=== PATIENT | female | born 1995 | race Caucasian/White ===

== ENCOUNTER 2023-04-02 15:48 | Outpatient (CLI) | payer BC, SELFPAY ==
--- NOTE | 2023-04-02 16:00 | CRLHL7_ITS ---
For Patients: As a result of the Century Cures Act, medical imaging exams and procedure reports are released immediately into your electronic medical record. You may view this report before your referring provider. If you have questions, please contact your health care provider. OBSTETRICAL ULTRASOUND 04/02/2023 INDICATION: Basic Anatomy Survey. FINDINGS: TABBY by LMP: 08/21/2023. GA: 19 weeks 6 days. Position: Vertex, Longitudinal. Cervix: Visualized TA. Cervical Length: Closed, 3.8 cm. Placenta Position: Anterior TA. Placenta Tip to Internal os: 2.3 cm. Umbilical Cord: Three Vessel Cord. Placental Insertion: Central. Amniotic Fluid: 3.9 cm SDP. Anatomy: Cerebellum: 2 cm, 20 weeks 2 days. Cisterna Magna: 3.5 mm. Nuchal Fold: 3.4 mm. Lateral Ventricle: 5.3 mm. CSP: Observed. Choroid Plexus: Observed. Midline Falx: Observed. Spine: Observed. Stomach: Observed. Abdominal Cord Insertion: Observed. Urinary Bladder: Observed. Kidneys: Observed. Diaphragm: Observed. Nose/Lips: Observed. Orbital View: Observed. Profile: Observed. Extremities: Observed. 4 Chamber Heart: Observed. LVOT/RVOT: Observed. 3VV: Observed. 3VTV: Observed. PROFILE: BPD: 46 cm, 19 weeks 6 days, 51st percentile. HC: 17 cm, 19 weeks 4 days, 32nd percentile. AC: 15.4 cm, 20 weeks 4 days, 68th percentile. FL: 3 cm, 19 weeks 3 days, 27th percentile. FL/AC: 19.82%. HC/AC Ratio: 1.11. Percentile by TABBY: 53%. Heart Rate: 148 bpm. Age by this US: 19 weeks 6 days. TABBY by this US: 08/21/23. COMMENT: Placental cord insertion is suboptimally seen. IMPRESSION: Single live intrauterine gestation. No gross anomalies visualized. Placenta cord insertion suboptimally seen. Rosalba Reynaga M.D. Diagnostic/Breast Radiologist [email or web address] DARLINE/ish / DW/Dictated by: Rosalba Reynaga MD @ 04/04/2023 6:56:00 AM (Electronically Signed)
== END 2023-04-02 15:49 | disposition home or self-care (01) ==
LOC: US 15:49
PROVIDERS: PCP Family Medicine; Visit Provider Advanced Practice Midwife
DX: Z34.92 Encounter for supervision of normal pregnancy, unspecified, second trimester (principal); Z3A.19 19 weeks gestation of pregnancy
CPT/HCPCS: 76805

== ENCOUNTER 2023-04-29 14:48 | Outpatient (CLI) | payer BC, SELFPAY ==
--- NOTE | 2023-04-29 15:00 | CRLHL7_ITS ---
For Patients: As a result of the Century Cures Act, medical imaging exams and procedure reports are released immediately into your electronic medical record. You may view this report before your referring provider. If you have questions, please contact your health care provider. INDICATION: PLACENTAL CORD INSERTION NOT ADEQUATELY SEEN ON SURVEY COMPARISON: 04/02/2023 TECHNIQUE: Real-time camp-scale imaging of the pelvis was performed. FINDINGS: heart rate 138 beats per minute. Normal amniotic fluid with single deepest pocket 5.7 cm. Normal profile. Cervix is closed and measures 3.4 cm. Placenta is anterior. Normal placental cord insertion. IMPRESSION: Normal placental cord insertion. Dictated by Juan Pablo Alcala MD @ 04/29/2023 3:52:32 PM (Electronically Signed)
== END 2023-04-29 14:49 | disposition home or self-care (01) ==
LOC: US 14:48
PROVIDERS: PCP Family Medicine; Visit Provider Advanced Practice Midwife
DX: O43.199 Other malformation of placenta, unspecified trimester (principal)
CPT/HCPCS: 76816

== ENCOUNTER 2023-05-28 13:59 | Outpatient (CLI) | payer BC, SELFPAY | END 2023-05-28 14:00 | disposition home or self-care (01) | LOC: NFLDREF 05-31 09:33 | PROVIDERS: PCP Family Medicine; Referring Provider Family Medicine; Visit Provider Advanced Practice Midwife | DX: Z34.90 Encounter for supervision of normal pregnancy, unspecified, unspecified trimester (principal) | CPT/HCPCS: 86592 ==

== ENCOUNTER 2023-06-01 08:03 | Outpatient (CLI) | payer BC, SELFPAY | END 2023-06-01 08:04 | disposition home or self-care (01) | LOC: NFLDREF 06-02 11:36 | PROVIDERS: PCP Family Medicine; Referring Provider Family Medicine; Visit Provider Advanced Practice Midwife | DX: R73.09 Other abnormal glucose (principal) | CPT/HCPCS: 82951; 82952 ==

== ENCOUNTER 2023-07-29 18:25 | Inpatient (IN) | payer BC, SELFPAY ==
[2023-07-29 18:12] VITALS: PULSE 82; O2SAT 98
[2023-07-29 18:36] VITALS: BP 136/81; PULSE 80
[2023-07-29 19:00] LABS: Amnisure Rom* POSITIVE
[2023-07-29] MEDS: AMPICILLIN 2 GM in 0.9 % SODIUM CHLORIDE Mini-bag 100 ML IVPB (19:06)
[2023-07-29 19:29] VITALS: BMI 27.0
[2023-07-29 20:20] VITALS: BP 132/63; PULSE 82; TEMP 36.8
--- NOTE | 2023-07-29 20:31 | P.OBHP_ITS ---
OB - H&P: HPI Labor/Induction History of Present Illness Date Seen: 07/29/23 Chief Complaint: Sona is a 28 year old 1 para 0 at 36.5 weeks gestation by LMP who presents with SROM of clear fluid at 1640 today. Chief complaint: ob out : 1 Para: 0 Date of last menstrual period: 11/14/22 Estimated date of delivery: 08/21/23 Gestational age based on last menstrual period: 36 Narrative: Sona Hill is a 28 year old female at 36.5 weeks here with SROM today at 1640 for clear fluid. She has continued to leak fluid since and an AmniSure was sent which is positive for rupture of membranes. She is feeling occasional cramping her Wilfredo is with her for support. OB H&P Gestational age: 36 weeks 5/7 days Patient's care began at 11 and 5/7 weeks gestation. She is dated by first trimester US consistent with LMP. EDC is 08/21/2023. She has had routine visits since that time. OB Labs: ?Blood type: O+, antibody screen [negative].?Hgb: 13.6?? ?Platelets : 241?? ?Rubella: Immune?RPR: non-reactive?HBsAg: negative??? Hep: C negative ?HIV: negative?GC/Chlamydia: negative/negative???(02/04/23) ?Pap (08/27/2020): [negative]?? IMAGINst trimester: 12/29/22 viability u/s for spotting. 6.0 weeks. TABBY 08/24/23 by this u/s, consistent with LMP viability u/s 9.6 weeks and TABBY 08/21/23, consistent with LMP Anatomy scan: Single live intrauterine gestation. No gross anomalies visualized. Placenta cord insertion suboptimally seen. Others: heart rate 138 beats per minute. Normal amniotic fluid with single deepest pocket 5.7 cm. Normal profile. Cervix is closed and measures 3.4 cm. Placenta is anterior. Normal placental cord insertion. IMPRESSION: Normal placental cord insertion ALLERGIES: NKDA MEDICATIONS: vitamins OBSTETRIC HISTORY: G 1 P 0 Vaginal deliveries, [0] C-sections, [0] miscarriages, and [0] abortions. [0] living children. GYNECOLOGIC HISTORY: LMP 11/14/22. She has no history of sexually transmitted diseases. Last pap smear 08/27/2020. This was normal. PAST MEDICAL HISTORY: Heart murmur as child, resolved on its own, multiple echos which were normal. Near syncope, >20 episodes. Normal Echo 01/03/21 done @ [facility]. 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 PAST SURGICAL HISTORY: wisdom teeth removal SOCIAL HISTORY: Patient is . She has no denominational or cultural needs. Blood transfusion is acceptable if needed. She is a nonsmoker, drinks no alcoholic beverages, and has no illicit drug use. She has no dietary restrictions. She feels safe at home. She denies abuse. FAMILY HISTORY: Patient denies history of any defects, multiple losses, or mental retardation. COMPREHENSIVE REVIEW OF SYSTEMS: negative other than as dictated above. Specific Issues/Plans : Wilfredo 1. Hx of a heart murmur as child. Resolved, multiple WNL echos. 2. Failed 1hr GTT. 3 hr WNL. 3. GBS + Recommend antibiotics in labor Needs PP pap [facility] transfer records: 02/04/23: New OB visit at 11.5 weeks TABBY 08/21/23 by LMP c/w 6 wk u/s 12/29/22 viability u/s for spotting. 6.0 weeks. TABBY 08/24/23 by this u/s, consistent with LMP viability u/s 9.6 weeks and TABBY 08/21/23, consistent with LMP OB Labs:???12/29/22 ?Blood type: O+, antibody screen negative.?Hgb: 13.6?? ?Platelets : 241?? ?Rubella: Immune?RPR: non-reactive?HBsAg: negative??? Hep: C negative ?HIV: negative?GC/Chlamydia: negative/negative???(02/04/23) ?Pap (08/27/2020): [negative]??? 02/04/23 cell free DNA testing: low risk. Male Covid: Flu: declined RSV: declined Tdap: declined 32 wk PHQ/MURTAZA: 34 wk Hgb: GBS: H&P: History of Present Dating criteria: based on LMP care: good care Ultrasounds: normal 1st trimester US complications comment: PPROM Medical complications: none Review of Systems Status of ROS: Reports: 10 or more systems reviewed and unremarkable except as noted in History and below Meds Home Medications and Allergies Home Medications Medication Instructions Recorded Confirmed Type docosahexaenoic acid 200 mg 200 mg PO DAILY 03/26/23 07/29/23 History capsule ( DHA) vits no.126-ferrous fum 1 tab PO DAILY 07/13/23 07/29/23 History 28 mg iron-folic acid 800 mcg tablet (Classic ) Allergies Allergy/AdvReac Type Severity Reaction Status Date / Time No Known Drug Allergies Allergy Verified 07/27/23 15:55 OB - H&P: Exam Physical Exam: Vital signs: Temp Pulse BP Pulse Ox 98.3 F 82 132/63 98 07/29/23 20:20 07/29/23 20:20 07/29/23 20:20 07/29/23 18:12 Narrative: Objective: Vital signs: as noted above, WNL Total weight gain: see flowsheet General: alert, oriented x3, no acute distress Mood: appropriate Lungs: CTA. Respirations - breathing unlabored Heart: Regular rate and rhythm Abdomen: soft, nontender, gravid uterus Heart Tones: 145 bpm, + accelerations, - decelerations Cervix: Deferred at this time presentation: vertex by Alcon's Legs: nontender, edema none Skin: warm, dry, no rashes Neurologic: Intact. Detailed Labor and Delivery Exam: Patient Gravid: Yes Fetus (Single): Amniotic Membrane Status: SROM Amniotic Membrane Fluid Description: Clear Heart Rate Baseline: 145 Monitor Accelerations: Present Monitor Decelerations: None Hims Coder Variability: Moderate (6-25) OB - Problem Based A/P Additional Plan (1) premature rupture of membranes (PPROM) with unknown onset of labor: Status: Acute (2) 36 weeks gestation of : Status: Acute Plan at 36.5 weeks gestation? GBS positive? Uncomplicated ? PPROM clear fluid Category 1 FHR ?? PLAN:? 1. Antibiotic prophylaxis treatment per protocol, first dose when labor or augmentation started 2. Limit vaginal exams 2. Reviewed the risks and benefits of expectant management vs augmentation of labor at this time. Patient prefers expectant management. Will consider augmentation at 12 hours from ROM. 3. Candidate for analgesia of choice. Planning unmedicated .?? 4. Anticipate ? 5. SL per protocol for antibiotics 6. Continuous monitoring for gestation? ? Delivery/Labor/Induction Plan Plan: expectant management
[2023-07-29 21:30] VITALS: BP 128/71; PULSE 69; TEMP 36.8
[2023-07-29] MEDS: AMPICILLIN 1 GM in 0.9 % SODIUM CHLORIDE Mini-bag 100 ML IVPB (22:44)
[2023-07-29 22:47] VITALS: BP 107/55; PULSE 69; TEMP 36.9
[2023-07-30] VITALS (15 sets, daily range): BP systolic 120–132; BP diastolic 66–75; PULSE 74–103; RESP 16–18; TEMP 36.6–37
[2023-07-30] MEDS: AMPICILLIN 1 GM in 0.9 % SODIUM CHLORIDE Mini-bag 100 ML IVPB ×6 (02:40→23:10)
--- NOTE | 2023-07-30 05:05 | P.OBPN_ITS ---
Subjective Date Seen: 07/30/23 Narrative: ?Sona is coping well with labor pain/contractions. Per RN report she started breathing through contractions around 0100, has been painful with contractions since that time. She is currently in the tub for pain relief and relaxation. ?Wilfredo is with her for support. ?She would like to continue with water immersion for comfort and pain management.?She is declining a VE at this time. Objective Exam: General Appearance:? Calm, cooperative. ?No acute distress. ? Psychiatric Exam: Alert and oriented, appropriate affect Abdomen: Gravid Ctx: ?Q 3-5 min apart. Moderate FHTs: ?Baseline: 135. ? ? Variability: moderate. ?Accels: +. ? ?Decels: ?-. SVE: 2cm 60% -3 per RN Membranes: ?SROM ? X 12 hours Vital Signs: Last Vital Signs Temp 98.4 F 07/30/23 03:36 Pulse 74 07/30/23 03:36 BP 129/74 07/30/23 03:36 Pulse Ox 98 07/29/23 18:12 Contractions Monitor mode: External Contraction Frequency: 3-5 Contraction pattern: Regular Contraction intensity: Moderate Assessment Assessment: early labor Amniotic Membrane Status: SROM Status: Category l Heart Rate Baseline: 145 Half-[address] Variability: Moderate (6-25) Monitor Accelerations: Present Monitor Decelerations: None Plan Plan: Assessment:?? at 36.6wks gestation?? GBS Positive Patient is coping well with challenges of labor.?? Labor type: Spontaneous, Early labor? Category 1 FHR pattern.? complicated by: Hx heart murmur as child, Near syncope episodes Labor complicated by: PPROM? Plan:?? Continue expectant management, consider VE to assess progression when patient is ready or labor slows Antibiotic prophylaxis treatment per protocol continues, has had adequate treatment at this time Continue with routine intrapartum cares as ordered.?? Patient encouraged to move and change positions to promote physiologic labor and .?? Nonpharmacologic comfort measures per patient preference. Candidate for analgesia of choice if desired. Anticipate progress to NVD. ?
--- NOTE | 2023-07-30 08:14 | PM.OBPNL ---
Subjective Date Seen: 07/30/23 Narrative: Sona continues to contract. She states that contractions increased around 0100 and have increased in intensity and frequency. This morning they did decrease in frequency to about every 5-7 minutes. At that time we did discuss a plan for proceeding and discussed Cytotec and Pitocin augmentation. She desired expectant management at that time. We planned to reevaluate the need for augmentation around [id number]. However, since around 0730 they again increased to every 3-4 minutes. She is feeling a lot of back and pelvic pain with contractions. Around 0800 she began to feel a little bit of pressure with contractions and requested a SVE. She was found to be 3/100%/-1. She is continuing to try to rest between contractions. We talked about position changes and she is going to try the Hue circuit with the RN. She is feeling a little discouraged but wants to continue with expectant management and is thankful that she doesn't need Pitocin at this time. Objective Vital Signs: Last Vital Signs Temp 97.9 F 07/30/23 07:31 Pulse 75 07/30/23 06:44 BP 128/69 07/30/23 06:44 Pulse Ox 98 07/29/23 18:12 Contractions Monitor mode: External Contraction pattern: Regular Contraction intensity: Moderate Assessment Assessment: early labor Station: -1 Amniotic Membrane Status: SROM Status: Category l Heart Rate Baseline: 145 Chemist Inorganic Variability: Moderate (6-25) Monitor Accelerations: Present Monitor Decelerations: None Plan Plan: Expectant management. Consider augmentation if changes. GBS positive. Continue with antibiotic prophylaxis. Candidate for analgesia of choice. Desires unmedicated. Anticipate .
--- NOTE | 2023-07-30 17:58 | P.OBPN_ITS ---
Subjective Date Seen: 07/30/23 Narrative: Sona has continued to labor throughout the day. She has mostly contracted every 3-4 minutes but occasionally the contractions have decreased to every 6-10. She is feeling pressure intermittently. We discussed Pitocin augmentation around 1400 when her contractions spaced out initially but she declined and wanted to try pumping. She was found to be 5-6cm at this time. This did increase the frequency. Her contractions did once again decreased in frequency around 1600 an d pumping again increase the frequency. She requested a SVE around 1800 and was found to be unchanged from her previous exam. At this time we discussed options for proceeding including Pitocin augmentation, epidural, IV pain medications to allow her to relax and rest, or hydrotherapy. She definitively declined an epidural and did not want to consider Pitocin at this time. She would like to try hydrotherapy. She was encouraged to consider IV medications if that did not allow her to relax. We discussed that this could decrease the frequency of contractions. Sona continues to leak clear amniotic fluid and denies blood show. I am unable to determine position due to her tolerance of SVE but I suspect that baby is asynclitic. Will closely monitor and continue to encourage ways for her to rest, relax and progress her labor. Objective Vital Signs: Last Vital Signs Temp 97.8 F 07/30/23 16:41 Pulse 103 H 07/30/23 16:41 Resp 18 07/30/23 16:41 BP 132/66 07/30/23 16:41 Pulse Ox 98 07/29/23 18:12 Pelvic Exam Dilation (cm): 6 Effacement (%): 100 Contractions Monitor mode: External Contraction Frequency: 2-6 Contraction pattern: Regular Contraction intensity: Moderate Assessment Station: -1 Amniotic Membrane Status: SROM Status: Category l Heart Rate Baseline: 135 Monitor Accelerations: Present Monitor Decelerations: None
[2023-07-30] MEDS: OXYTOCIN 30 unit/500 ML in NS 30 UNIT/500 ML BAG IVPB (19:10)
--- NOTE | 2023-07-30 22:36 | PM.OBPNL ---
Subjective Date Seen: 07/30/23 Narrative: Sona did decided on hydrotherapy after or last discussion. It was helpful in allowing her to relax and cope better with contractions. She was agreeable to Pitocin augmentation at 1900 after her contractions once again spaced out. She did start to feel more pressure with contractions around 2100. She requested a SVE and was found to be 8cm. She is continuing to labor in the tub. We did have a discussion about not delivering in the tub and she is agreeable to getting out when pushing or close to delivery. All questions answered. She is coping fair with contractions and lots of support is provided by her partner and the RN. Objective Vital Signs: Last Vital Signs Temp 98.6 F 07/30/23 19:31 Pulse 98 07/30/23 19:31 Resp 16 07/30/23 19:31 BP 120/67 07/30/23 19:31 Pulse Ox 98 07/29/23 18:12 Pelvic Exam Dilation (cm): 8 Effacement (%): 100 Station: 0 Contractions Monitor mode: External Contraction pattern: Regular Contraction intensity: Moderate Pitocin Rate (mU/min): 3 Assessment Station: -1 Amniotic Membrane Status: SROM Status: Category l Heart Rate Baseline: 140 Senior Care Variability: Moderate (6-25) Monitor Accelerations: Present Monitor Decelerations: None Plan Plan: Continue with Pitocin titration as needed. Continuous monitoring. GBS +. Continue antibiotic infusion as ordered. Anticipate . Candidate for analgesia of choice. Desires unmedicated. Coping fair at this time with support.
[2023-07-31] VITALS (29 sets, daily range): BP systolic 92–135; BP diastolic 61–79; PULSE 79–91; RESP 16–18; TEMP 36.3–36.7; O2SAT 95–100
--- NOTE | 2023-07-31 03:01 | P.OBPN_ITS ---
Subjective Date Seen: 07/31/23 Narrative: Sona progressed to complete and started pushing around 0000. At that time she was 37.0 weeks and desired to try for a water so she was moved to room 200 and into the tub. She has been pushing in many different positions in the tub and did get out of the tub to urinate and did labor and push for a short while out of the tub as well standing, squatting and on the toilet. She has now been pushing almost 3 hours and has had very minimal sleep. She initially was making good progress but less progress has been made in the last hour and it feels that caput is increasing. I suspect that baby could be asynclitic causing pushing to be more difficult. We discussed options for proceeding and my concern for her continued strength for pushing. We have been increasing the Pitocin but very slowly per her request and only with her consent. We discussed increasing the Pi tocin more frequently to increase the strength of the contractions. She is hesitant but agreeable to this with continued discussion with her before titration changes. We also discussed an epidural for pain which she is very resistant to. We also discussed consulting Dr. Ervin to evaluate for interventions that she can do including but not limited to rotation, vacuum assisted and delivery. She initially desired longer to push but did consent to this after a few more pushes. Dr. Ervin was notified and will come and evaluate Sona. She will continue to push until that time with support and encouragement. Objective Vital Signs: Last Vital Signs Temp 98.6 F 07/30/23 19:31 Pulse 85 07/31/23 00:04 Resp 16 07/30/23 19:31 BP 135/66 07/31/23 00:04 Pulse Ox 98 07/29/23 18:12 Pelvic Exam Dilation (cm): 10 Effacement (%): 100 Contractions Monitor mode: External Contraction Frequency: 2-5 Contraction pattern: Regular Contraction intensity: Moderate Pitocin Rate (mU/min): 6 Assessment Assessment: other (2nd stage) Station: -1 Amniotic Membrane Status: SROM Status: Category l Heart Rate Baseline: 140 Residential Variability: Moderate (6-25) Monitor Accelerations: Present Monitor Decelerations: None Plan Plan: OB consultation. Continue pushing. Continue Pitocin titration. Anticipate NVD.
[2023-07-31] MEDS: AMPICILLIN 1 GM in 0.9 % SODIUM CHLORIDE Mini-bag 100 ML IVPB (03:04)
[2023-07-31] MEDS: LACTATED RINGERS 1000 ML 1,000 ML 125 ML IV (04:59)
--- NOTE | 2023-07-31 05:51 | P.OBPN_ITS ---
Subjective Date Seen: 07/31/23 Narrative: Dr Ervin arrived at 0345. She continued to push in multiple positions in the tub until that time. She the OB arrived she got up and went to the bed to be evaluated. See Dr. Ervin notes for details but it was determined that there was likely enough room for delivery and a decision was made to continue pushing for an additional 30 minutes. Around 5 she was again evaluated and continue to push with guidance. Around 514 a discussion was had with dr. Ervin and Sona about options to proceed. She was given the options of continuing but educated on the risks involved related to her exhaustion and the length of pushing, attempting a vacuum assisted delivery and risks and benefits were discussed, or a delivery. I was there to help answer questions and provide support. She decided to attempt a vacuum assisted delivery. See dr. Ervin note for details and more information. Objective Vital Signs: Last Vital Signs Temp 98.6 F 07/30/23 19:31 Pulse 85 07/31/23 05:23 Resp 16 07/30/23 19:31 BP 132/64 07/31/23 05:23 Pulse Ox 98 07/29/23 18:12 Pelvic Exam Dilation (cm): 10 Effacement (%): 100 Station: 0 Contractions Monitor mode: External Contraction Frequency: 2-4 Contraction pattern: Regular Contraction intensity: Moderate Pitocin Rate (mU/min): 6 Assessment Station: -1 Amniotic Membrane Status: SROM Status: Category l Heart Rate Baseline: 130 [place] Hydraulic Press Operator Variability: Moderate (6-25) Monitor Accelerations: Present Monitor Decelerations: Variable Plan Plan: Care assumed by Dr. Ervin for attempted vacuum assisted with possibility of delivery.
[2023-07-31] MEDS: AZITHROMYCIN 500 MG in 0.9 % SODIUM CHLORIDE 250 ml 250 ML 255 MG IVPB (06:20)
[2023-07-31 06:57] LABS: Hematocrit 32.9 % (33.0-51.0); Immature Granulocytes Pct Auto 0.5 %; Lymphocytes Percent Auto 4.9 % (20-44); Mean Corpuscular HGB Conc 33 gm/dL (32-36); Mean Corpuscular Hemoglobin 30 pg (26-34); Mean Corpuscular Volume 89 fL (80-100); Monocytes Percent Auto 5.2 % (0.0-11.0); Neutrophils Percent Auto 89.4 % (42.0-72.0); Platelet Count* 242 K/uL (140-440); RDW Coefficient of Variation % 13.1 % (11.5-15.5); Red Blood Count 3.68 m/uL (4.00-5.20)
[2023-07-31 07:08] LABS: Slide Review Reflex No
--- NOTE | 2023-07-31 07:31 | PM.OBPRCCS ---
Procedure Date of procedure: 07/31/23 Pre-op diagnosis: 37 weeks, PPROM, prolonged ROM, secondary arrest of descent, failed vacuum, OT asynclitic presentation Post-op diagnosis: same Procedure Done: Global Will [facility] bill your pro fee for this procedure?: Yes Blood Loss Measurement Type: QBL (369 mL) Bakri Used: No Surgeon: Destinee Ervin MD Recreation Therapist: Minoo Gonzalez MD Anesthesia Type: Spinal Findings: Live-born male, cephalic presentation, occiput transverse position, weight 5 lb 8 oz, Apgars pending at the time of this dictation. Normal-appearing uterus, tubes, and ovaries bilaterally. Procedure Name: Primary low transverse section. Procedure Description: After obtaining informed consent, the patient was taken to the operating room where spinal anesthesia was obtained and found to be adequate. She was prepared and draped in the normal sterile fashion in the dorsal supine position with a leftward tilt. A Pfannenstiel skin incision was made with a scalpel. This incision was carried down to the underlying layer of fascia with the Bovie. The fascia was incised in the midline and the incision extended laterally. The superior and inferior aspects of the fascial incision were grasped with Amador clamps, elevated and the underlying rectus muscles dissected off sharply and with electrocautery. The rectus muscles were then in the midline. The Pedro O retractor was then placed into the incision. The vesico uterine peritoneum was identified, grasped with pickups, and entered sharply with Metzenbaum scissors. This incision was extended laterally and a bladder flap was created digitally. The lower uterine segment was then incised in a transverse fashion with the scalpel. Upon entry into the uterus, clear amniotic fluid was noted. The uterine incision was extended laterally with blunt finger fractionation. Cephalad pressure was applied to the head by an RN. I was then able to cup my fingers around the vertex and the 's head was delivered atraumatically, followed by the remainder of the infant's body. The nose and mouth were suctioned with the bulb suction. The cord was doubly clamped and cut after 30 second delay, and the was handed off the field for pediatric evaluation. The placenta was delivered spontaneously with umbilical cord traction and fundal massage. There was some brief uterine atony. Pitocin was administered intravenously with the IV fluids, tranexamic acid 1000 mg was administered intravenously, and Methergine 0.2 mg was administered intramuscularly. The uterus was cleared of all clots and debris. The uterine incision was reapproximated in a running locking fashion with a 0 chromic suture. A 2nd layer of the same suture was used to imbricate in horizontal fashion. The gutters were irrigated and suctioned. All instruments and retractors were removed. The anterior peritoneum was reapproximated in a running fashion with a 3-0 Vicryl suture. The subfascial tissues were carefully inspected and hemostasis assured. The fascia was reapproximated in a running fashion with a looped 0 Maxon suture. The subcutaneous tissues were copiously irrigated. Hemostasis was assured. The skin was closed in a subcuticular fashion with 4-0 Monocryl. Surgical glue and dressing were applied. The patient tolerated the procedure well. Sponge, lap, needle, and instrument counts were reported as correct x2. The patient was taken to the recovery room, awake, and in stable condition. She did receive two grams of IV Ancef and 500 mg IV azithromycin preoperatively. Complications: None. Pathology: specimen obtained, sent to pathology (Placenta) Condition: stable Disposition: floor
--- NOTE | 2023-07-31 07:38 | P.OBCN_ITS ---
OB - CN: HPI Date of Consult Time Seen by Provider: 03:40 Date Seen: 07/31/23 Patient: [facility] Patient Consult date: 07/31/23 Requesting Physician: Bev Wynne CNM Primary Care Provider: Lizbeth Gonzalez DO Consult Narrative Reason for consult: arrest of labor Narrative: The patient is a 28 year old G 1 P 0 at 37 weeks gestation that was admitted to the [facility] on 07/29/23 for premature rupture of membrane. Labor was augmented with IV Pitocin. She reached complete cervical dilatation at midnight and started pushing just after midnight on 07/31/2023. I was called at 3:00 a.m. by the collaborating supervising physician and asked to come in to evaluate the patient. I evaluated the patient at about 0340, found her cervix to be completely dilated, fetus was vertex, and in an occiput transverse position, slightly asynclitic. The pelvis appeared to be adequate. I assessed the patient's pushing efforts, and found that she did much better pushing with the closed glottis then an open glottis, as she had been doing. History of Present Dating criteria: based on LMP care: good care Ultrasounds: normal 1st trimester US and normal mid trimester US complications comment: PPROM Medical Complications: None. History History 1 Elective abortions 0 Para 0 Spontaneous abortions 0 Hx # Term Pregnancies 0 Ectopic pregnancies Hx # Pregnancies 0 Multiple births Number of Living Children 0 Labs Blood type: O (+) positive Rubella: immune RPR/VDLR: nonreactive GBS status: positive HBsAG: negative OB Labs: Lab Assessment Start: 07/29/23 18:32 Freq: ONCE Status: Complete Protocol: PC.OBGBS Activity Type Activity Date Activity User E-sign Co-sign Detail Recorded Client Recorded Date Recorded By Document 07/29/23 18:32 [facility] [id number] 07/29/23 18:40 [facility] 07/29/23 18:32 Lab Assessment GBS Status positive Is Patient Allergic to Penicillin? No Treatment Required OK Are Labs Available Yes Maternal Blood Type O Maternal RH Factor Positive Evaluate Maternal Rubella Immune Status Immune Hepatitis B Surface Antigen Negative Maternal HIV Status Negative Maternal Syphillis (RPR) Status Negative Review of Systems Status of ROS: Reports: 6 or more systems reviewed and unremarkable except as noted in History and below PFSH PFSH Medical History Heart murmur ?R01.1 - Cardiac murmur, unspecified (ICD-10) Near syncope ?R55 - Syncope and collapse (ICD-10) Surgical History [place] teeth extracted ?K08.409 - Partial loss of teeth, unspecified cause, unspecified class (ICD- 10) Family History Paternal Grandfather Colon cancer Glaucoma Myocardial infarction Stroke Liver disease Lung cancer Lymph node cancer Paternal Grandmother Brain cancer Stroke Father High cholesterol Social History Narrative: SOCIAL? ? Education: 2 associates degrees? Work: for an [employer] company? ? Partner: Wilfredo, , parking meter mechanic? ? Lives with: Wilfredo? ? Pets: dog? ? Abuse: Denies past Unable to assess current, partner present? ? Special Diet: Denies? ? Ok with a blood transfusion: yes? ? Culture or episcopal beliefs: denies? RISK FACTORS? ? Exercise Times/wk: walking daily, yoga.? ? Depression/Anxiety: denies? ? Previous Treatments NA Therapy NA MURTAZA: 0 PHQ 9: 0? ? Seat Belt Use: Routinely ? Smoking: Denies past/present? ? Alcohol/day: Denies while ? ? Caffeine: rare? ? Drug Use: Denies past/present? ? What is your current living situation?: I presently have a place to live Problems where you live: no known problems In the past 12 months, utilities in danger of being shut off: no In past 12 months, lack of transportation kept you from medical appts, meetings, work, or getting things needed for daily living: no In the past 12 mos, have been you worried that your food would run out before you had money to buy more?: never true In the past 12 mos, the food you bought just didn't last and you didn't have money to buy more?: never true Smoking Status: Never smoker How often does anyone, including family, friends and others, physically hurt you : never How often does anyone, including family, friends and others, insult or talk down to you: never How often does anyone, including family, friends and others, threaten you with harm: never How often does anyone, including family, friends and others, scream or curse at you: never Little interest or pleasure in doing things: not at all Feeling down, depressed, or hopeless: not at all Meds Home Medications and Allergies Home Medications Medication Instructions Recorded Confirmed Type docosahexaenoic acid 200 mg 200 mg PO DAILY 03/26/23 07/29/23 History capsule ( DHA) vits no.126-ferrous fum 1 tab PO DAILY 07/13/23 07/29/23 History 28 mg iron-folic acid 800 mcg tablet (Classic ) Allergies Allergy/AdvReac Type Severity Reaction Status Date / Time No Known Drug Allergies Allergy Verified 07/27/23 15:55 OB - H&P: Exam Physical Exam: Vital signs: Temp Pulse Resp BP Pulse Ox 98.6 F 85 16 132/64 98 07/30/23 19:31 07/31/23 05:23 07/30/23 19:31 07/31/23 05:23 07/29/23 18:12 Constitutional: Constitutional: moderate distress (With contractions) Routine HEENT Exam: Head: Present atraumatic Routine Neck Exam: Neck: Present full ROM Routine Respiratory Exam: Respiratory: Present CTA bilaterally Routine Cardiovascular Exam: Cardiovascular: RRR Detailed Labor and Delivery Exam: Patient Gravid: Yes Dilation (cm): 10 Effacement (%): 100 Fetus (Single): Station: +2 Position: Left Occiput Transverse (asynclitic) Amniotic Membrane Status: SROM Amniotic Membrane Fluid Description: Clear Heart Rate Baseline: 130 Monitor Accelerations: Present Monitor Decelerations: Variable Video Operator Variability: Moderate (6-25) OB - Results Labs Labs: Short CBC 07/31/23 Range/Units 06:20 WBC 24.20 H (4.50-11.00) K/uL Hgb 11.0 L (12.0-16.0) gm/dL Hct 32.9 L (33.0-51.0) % Plt Count 242 (140-440) K/uL OB - CN: A/P Assessment and Plan (1) premature rupture of membranes (PPROM) with unknown onset of labor: Status: Acute (2) 36 weeks gestation of : Status: Acute (3) Arrested labor: Status: Acute Plan At the time that I initially evaluated the patient, she was very resistant to the idea of a delivery. We discussed management options, including continued pushing with closed glottis rather than open glottis with maternal repositioning as needed to encourage rotation, vacuum-assisted vaginal delivery, or section. The relative risks and benefits of vacuum- assisted vaginal delivery were discussed, risks including injury to the scalp or bleeding in the brain, the possibility of sudden distress necessitating urgent section, with the possibility that it might not be effective and section would still be recommended. The patient initially elected to keep pushing. She pushed with the collaborating supervising physician from [phone], at which time I re-evaluated her. I suggested other position changes, and she pushed flatter on her back in the lithotomy position as well as in hands knees. At 5:59 a.m., the patient consented verbally for vacuum-assisted vaginal delivery. The OR staffs, anesthesia, and Peds were notified of the impending vacuum attempt. The vacuum was carefully applied to the vertex after first assessing head position, three pulls were done with one contraction with maternal pushing effort, and no descent of the vertex was noted. At this time, which by then was 0600, I recommended proceeding with delivery. Informed consent was obtained for primary low transverse section under spinal anesthesia. Risks discussed included, but were not limited to, bleeding, blood transfusion, infection, injury to other organs or infant, anesthesia reactions. The patient declined TAP block.
--- NOTE | 2023-07-31 08:07 | W.ANESCHARGE ---
Anesthesia Charges Start Date/Time Anesthesia Start Date: 07/31/23 Anesthesia Start Time: 06:24 Stop Date/Time Anesthesia Stop Date: 07/31/23 Anesthesia Stop Time: 08:00 Summary Emergency: CONCIERGE RECEPTIONIST
[2023-07-31] MEDS: KETOROLAC 30 MG/ML inj IVP ×2 (13:51→19:40)
[2023-08-01] VITALS (9 sets, daily range): BP systolic 103–123; BP diastolic 66–83; PULSE 72–83; RESP 16; TEMP 36.3–36.6; O2SAT 97–99
[2023-08-01] MEDS: KETOROLAC 30 MG/ML inj IVP ×3 (01:22→13:54)
[2023-08-01 04:37] LABS: Hemoglobin* 9.3 gm/dL (12.0-16.0)
--- NOTE | 2023-08-01 07:43 | P.OBPN_ITS ---
OB - PN:Subj Subjective Date Seen: 08/01/23 Narrative: Sona is a 28 y.o. G 1 P 1 who was admitted to [facility] for PPROM. ?She had a section that was complicated by failed vacuum. The patient feels well. ?The pain is well controlled with current medications. ?She has no new complain ts. Baby is curretly not due to sugar and temperature instability and on an IV. She has hand expressed one time in the last 24 hours, but desires not to give baby milk that has any anesthesia in it. the patient has done well.? Vitals have been stable.? She has remained afebrile.? Has a good appetite, is tolerating a general diet. ?She is voiding without difficulty.? She is passing gas and has not had a bowel movement.? She is ambulating and denies any dizziness.? Has small amount of rubra lochia. Problems: Anemia plan: Discharge home with baby. Follow up in 2 weeks and 6 weeks. , may see if needed Hgb 9.3. Iron supplement ordered orally every other day OB - PN: Obj Exam Physical Exam: Vital signs: Temp Pulse Resp BP Pulse Ox O2 Del Method 97.5 F L 83 16 103/66 97 Room Air 08/01/23 03:17 08/01/23 03:17 08/01/23 06:00 08/01/23 03:17 08/01/23 03:17 08/01/23 03:17 Narrative: GENERAL APPEARANCE:? normal affect, alert, no distress MOOD:? appropriate CHEST:? clear to auscultation HEART:? regular rate and rhythm ABDOMEN:? soft, non-tender the uterine fundus is at Umbilicus, Midline and is appropriate for the stage of recovery. EXTREMITIES:? normal and no edema INCISION: Dressing in place; Clean, dry and intact. Urinary Catheter Management: Urethral: Cath placed during this visit: yes, but has since been removed by the nurse Reason for continuing: surgical procedure Insertion date: 07/31/23 Insertion time: 06:45 Removal date: 07/31/23 Removal time: 17:45 OB - PN: Obj Data Labs Labs: Laboratory Results - last 24 hr 07/31/23 08/01/23 06:20 04:25 Hgb 9.3 L Blood Type O Positive Antibody Screen NEGATIVE OB - PN: A/P Delivery Assessment and Plan (1) care and examination immediately after delivery: Status: Acute (2) Delivery by section of full-term : Status: Acute (3) Lactating mother: Status: Acute Plan day: 1 Plan: routine care Comments: cares Iron supplement ordered every other day. May see if desires. Recommend she pump every 2-3 hours to help in itiate her milk supply while baby is not . Anticipate discharge tomorrow or the following day.
[2023-08-01] MEDS: FERROUS SULFATE 325 MG TABLET PO (08:27)
[2023-08-01] MEDS: IBUPROFEN 600 MG TABLET PO (18:27)
[2023-08-02] MEDS: IBUPROFEN 600 MG TABLET PO ×2 (00:35→07:42)
[2023-08-02 04:08] VITALS: BP 124/81; PULSE 76; RESP 16; O2SAT 96
--- NOTE | 2023-08-02 07:35 | P.OBPN_ITS ---
OB - PN:Subj Subjective Date Seen: 08/02/23 Patient comments OB post-: no complaints, tolerating diet and flatus present [place] status: and doing well [place] feeding status: exclusively Narrative: Complications:? ? The patient feels well.? The pain is well controlled with current medications.? She has no new complaints.? Urinary output is adequate and she is voiding witho ut difficulty.? Has a good appetite, is tolerating a general diet, is passing flatus, and has [] had a bowel movement.? Has [] amount of rubra lochia.? She is ambulating well.? OB - PN: Obj Exam Physical Exam: Vital signs: Temp Pulse Resp BP Pulse Ox O2 Del Method 97.8 F 76 16 124/81 96 Room Air 08/01/23 19:53 08/02/23 04:08 08/02/23 04:08 08/02/23 04:08 08/02/23 04:08 08/02/23 04:08 Urinary Catheter Management: Urethral: Cath placed during this visit: yes, but has since been removed by the nurse Reason for continuing: surgical procedure Insertion date: 07/31/23 Insertion time: 06:45 Removal date: 07/31/23 Removal time: 17:45 OB - PN: A/P Delivery Assessment and Plan (1) care and examination immediately after delivery: Status: Acute (2) Delivery by section of full-term infant: Status: Acute (3) Lactating mother: Status: Acute
[2023-08-02 07:54] VITALS: BP 114/71; PULSE 76; RESP 16; TEMP 36.3; O2SAT 96
--- NOTE | 2023-08-02 08:26 | PM.OBDSVD1 ---
DS: Providers Provider Date Seen: 08/02/23 Date of admission: 07/29/23 18:25 Primary care physician: Lizbeth Gonzalez DO Admitting Clinician: Reilly Rai CNM Consults: 07/31/23 03:13 Consult to Physician [CONS] Routine Comment: Consulting Provider: Destinee Ervin Has provider been notified: Yes Attending Physician on discharge: Reilly Rai CNM Date of Discharge: 08/02/23 DS: Diagnosis Discharge Diagnosis (1) Lactating mother: Status: Acute (2) care following delivery: Status: Acute (3) Delivery by section of full-term infant: Status: Acute Exam Narrative: Exam Narrative: GENERAL APPEARANCE:? normal affect, alert, no distress? MOOD:? appropriate? CHEST:? clear to auscultation and percussion? HEART:? regular rate and rhythm? ABDOMEN:? soft, non-tender the uterine fundus is U/2 and is appropriate for the stage of recovery.?Incision is well approximated without drainage, redness, or warmth. EXTREMITIES:? normal and no edema? Const: Vital Signs, click to edit/add: Vital Signs - 24 hr 08/01/23 19:53 08/02/23 04:08 08/02/23 07:54 Temperature 97.8 F 97.4 F L Pulse Rate [Pulse Oximeter] 72 76 76 Respiratory Rate 16 16 16 Blood Pressure [Ri ght Arm] 119/73 124/81 114/71 Pulse Oximetry 99 96 96 Oxygen Delivery Me thod Room Air Room Air Room Air Documenting provider has reviewed patient's vital signs: yes OB - DS: Summary Hospital Course Hospital Course: The patient is a 28 year old G 1 P 1 at 37.0 weeks gestation that was admitted to the Center on 07/29/23 for PPROM. She had an delivery prolonged ROM (39 hours), prolonged second stage, and primary delivery. She delivered a viable male infant. She is breast feeding. the patient has done well. She is only taking ibuprofen and occasionally Tylenol for pain control and declines a narcotic prescription. She is ambulating without difficulty. She has no new complaints.? Urinary output is adequate and she is voiding without difficulty.? Has a good appetite, is tolerating a general diet, is passing flatus, and has had a bowel movement.? Has small amount of rubra lochia.? She requested discharge today even though baby is likely staying due to phototherapy and a history of breathing difficulties requiring oxygen. She is and that is going well. Peripartum Data delivery method: Primary C/S; Labored Procedures: Procedures Operation Date: 07/31/23 06:30 Actual Procedure Side Surgeon p Section Destinee Ervin MD complications: none Gender: Male Discharge Plan: remains inpatient Status at Discharge Functional status at discharge: independent ambulation Overall status at discharge: patient is progressing back to baseline Time Spent with Patient Time attestation: Total time spent providing and/or coordinating discharge services: Discharge Plan Discharge Disposition: Home, Self-Care Date of Admission: 07/29/23 18:25 Attending Provider on Discharge: Bev Wynne Consulting Providers: Destinee Ervin Primary Care Provider: Lizbeth Gonzalez Condition: Stable Anticipated Discharge Date/Time: 08/02/23 12:00 Discharge Medications: New docusate sodium 100 mg Capsule 100 mg PO DAILY Qty: 30 0RF Rx Instructions: Take 1-2 tablets daily as needed for constipation. ferrous sulfate 325 mg (65 mg iron) Tablet 325 mg PO Q48H Qty: 45 0RF ibuprofen 600 mg Tablet 600 mg PO Q6H PRN (Reason: Pain) Qty: 60 0RF Continued DHA 200 mg capsule 200 mg PO DAILY Classic 28 mg iron- 800 mcg tablet 1 tab PO DAILY Discharge Orders: Discharge Order (Routine); Ordered 08/02/23 Ordered By: Bev Wynne Patient Education: OB /Breast Feeding Additional Instructions: Discharge instructions were reviewed with the patient including signs and symptoms of infection and home going medications? ?? Activity restrictions:? Lifting Restrictions: 20 pounds for 6 weeks? No high-impact or core exercises for 6 weeks.?? No not submerge incision under water X 2 weeks?? Nothing vaginally for 6 weeks: no tampons or intercourse? Do not drive while taking narcotic pain medication(s)? Off Work or School for 8 weeks? ?? Symptoms to report to doctor:? -Bleeding that saturates more than one pad per hour? -Passing clots larger than the size of a golf ball? -Pain not relieved by prescribed medication? -Fever above 100.4 degrees Fahrenheit? -A foul vaginal odor? -Difficulty in emotions, mood and functions? -Thoughts of hurting yourself and/or ? -Painful, reddened area in your breast? -Any drainage, redness or tenderness in your IV/epidural site? -Severe headache that doesn't improve after taking medications? -Changes in vision, including temporary loss of vision, blurred vision, and/or light sensitivity? -Upper abdominal pain (usually under ribs on the right side)? -Decrease in urination or painful, frequent urinating? -Chest pain? -Shortness of breath? -Tenderness or pain with redness and/swelling in the calf(s) of your leg? Follow up visits:?? 1. 2-week visit: incision check, discuss infant feeding/care concerns, review control options and screen for anxiety/depression.? 2. 6-week visit for an annual exam.? ?? consultation services are available to all mothers and babies for the first year after delivery.? To make an appointment, please call [phone].? Follow Up Appointments: [facility] [Provider Group] Forms: MyHealth Info Instructions
== END 2023-08-02 10:52 | disposition home or self-care (01) | DRG 540 ==
LOC: OB OUT 18:26 → OB 18:26
PROVIDERS: Obstetrics & Gynecology; Admitting Provider Advanced Practice Midwife; PCP Family Medicine; Visit Provider Advanced Practice Midwife
PROC: 10D00Z1 Extraction of Products of Conception, Low, Open Approach (ICD-10-PCS; CPT 59514; principal; 2023-07-31 06:15)
DX: O42.113 Preterm premature rupture of membranes, onset of labor more than 24 hours following rupture, third trimester (principal); O60.14X0 Preterm labor third trimester with preterm delivery third trimester, not applicable or unspecified; O62.2 Other uterine inertia; O99.824 Streptococcus B carrier state complicating childbirth; O66.5 Attempted application of vacuum extractor and forceps; O32.4XX0 Maternal care for high head at term, not applicable or unspecified; O32.8XX0 Maternal care for other malpresentation of fetus, not applicable or unspecified; O90.81 Anemia of the puerperium; D64.9 Anemia, unspecified; Z3A.36 36 weeks gestation of pregnancy; Z37.0 Single live birth
CPT/HCPCS: 01961; 36415; 84112; 85018; 85025; 86850; 86900; 86901; 87081; 87653; 88307; 99140; A9270; J0290; J0456; J1885; J2210; J2274; J2371; J2590; J7050; J7120

== ENCOUNTER 2023-10-29 09:17 | Outpatient (CLI) | payer BC, SELFPAY ==
--- NOTE | 2023-10-29 09:30 | US_ITS ---
Patient: SHE ARREOLA Facility:?[facility] Patient ID:?[id number] Site Patient ID:?[id number]. Site :?[id number] Study:?US-Breast Left LT BREAST LMT / DR. HEWITT TO READ-10/29/2023 10:10:24 AM Ordering Physician:?TEJAL CHRISTIE CNM Final Report: LEFT BREAST ULTRASOUND CLINICAL HISTORY: Left breast mastitis without abscess. COMPARISON: None. TECHNIQUE: Real-time ultrasound imaging of left breast with imaging documentation. FINDINGS: Targeted sonogram left breast performed at 1 o`clock 8 cm from the nipple. Mildly heterogeneous tissue is present with tiny collections of fluid measuring up to 17 x 3 x 8, too small to drain. IMPRESSION: Mild mastitis with tiny collections of fluid. RECOMMENDATIONS: Clinical follow-up. Results and recommendations were discussed with the patient at the time of the exam. BI-RADS Category 2: Benign Dictated by Juan Pablo Hewitt MD @ 10/29/2023 1:35:32 PM/jsb A lay language report of this examination will be provided to the patient. JENNIE/Dictated by: Juan Pablo Hewitt MD @ 10/29/2023 1:35:00 PM Signed by:?Juan Pablo Hewitt MD @10/29/2023 3:12:28 PM (Electronic Signature)
== END 2023-10-29 09:18 | disposition home or self-care (01) ==
LOC: US 09:18
PROVIDERS: Visit Provider Advanced Practice Midwife
DX: N61.0 Mastitis without abscess (principal)
CPT/HCPCS: 76642

== ENCOUNTER 2024-05-05 10:25 | Outpatient (CLI) | payer BC, SELFPAY ==
--- OUTSIDE RECORDS SUMMARY | 2024-05-05 13:30 | XMS_ITS | Clinical Summary ---
Author Organization [facility] Address [place], [place] [address] Care Team Providers Care Wheat Washer Name Role Phone Lizbeth Gonzalez DO Primary Care Provider [phone] Allergies No known active allergies Medications Medication Sig Dispensed Refills Start Date End Date Status [id number] ACID-OM3 ORAL Take by mouth. Active Active Problems Problem Noted Date Diagnosed Date 12/28/2022 Overview (02/04/2023): TABBY at 08/21/23 by LMP c/with 6wk US Estimated Date of Delivery: 08/21/23 Patient's last menstrual period was 11/14/2022 (exact date). GBS- Last Tdap- 2017 Last Flu vaccine- 2019 Glucose (GTT) result- No Known Allergies OB History Para Term AB Living 1 0 0 0 0 0 SAB IAB Ectopic Multiple Live Births 0 0 0 0 0 # Outcome Date GA Lbr Lemuel/2nd Weight Sex Delivery Anes PTL Lv 1 Current Past Medical History: . Date Heart murmur dx when she was younger. normal Echo per patient. no symptoms. Varicella 1996 Past Surgical History: . Laterality Date WISDOM TEETH EXTRACTION 2017 No data on file. Problems (from 12/28/22 to present) No problems associated with this episode. VANDANA LI RN ....12/28/2022 3:50 PM Immunizations Name Administration Dates Next Due DTaP 11/29/2000, 7,1996,05/10,1996 HPV 9 (Gardasil 9) 09/22/2013 Hepatitis A (Peds) 03/16/2013,10/14/2010 Hepatitis B (Adult) 09/09/2018 Hepatitis B (Peds) 1996,1996, 996 Hib Conjugate, Unspecified 04/13/1997,,1996,03/08 Human Papilloma Virus Vaccine 05/16/2013, 013 Inactivated Polio Vaccine 12/09/2000 Influenza, IIV3 (Age 6-35 mos) 04/30/2020 Influenza, IIV4 04/30/2020, 9,05/19/2018,04/13 MENINGOCOCCAL VACCINE 2 VIAL 2MO-55YO (MENVEO) 10/25/2013 MMR 11/29/2000 Meningococcal Vaccine (Menomune) 10/04/2007 Oral Polio Vaccine 1996,1996, 996 Tdap 08/18/2017,10/04/2007 Family History Medical History Relation Name Comments Other Brother lazy eye Hyperlipidemia Father No Known Problems Maternal Grandfather No Known Problems Maternal Grandmother Good Health Mother Cancer Paternal Grandfather lymph n ode cancer Cancer-colon Paternal Grandfather Heart attack Paternal Grandfather m low-- first RI in 50s Liver cancer Paternal Grandfather Lung cancer Paternal Grandfather Other Paternal Grandfather glaucom a Stroke Paternal Grandfather Brain cancer Paternal Grandmother Stroke Paternal Grandmother No Known Problems Sister Relation Name Status Comments Brother Alive Father Alive Maternal Grandfather Alive Maternal Grandmother Alive Mother Alive Paternal Grandfather Paternal Grandmother Sister Alive Social History Tobacco Use Types Packs/Day Years Used Date Smoking Tobacco: Never Smokeless Tobacco: Never Tobacco Cessation:Counseling Given: No Comments:non smoking home Alcohol Use Standard Drinks/Week Comments Not Currently 0 (1 standard drink = 0.6 oz pur e alcohol) socially PHQ-2 Answer Date Recorded PHQ-2 TOTAL SCORE 0 03/10/2023 Social Connections Answer Date Recorded Frequency of Communication with Friends and Fami ly Not on file 03/10/2024 Financial Resource Strain Answer Date R ecorded Difficulty of Paying Living Expenses 3 03/10/2023 Difficulty of Paying Living Expenses Not on file 03/10/2023 Food Insecurity Answer Date Recorded Worried About Running Out of Food in the Last Ye ar 1 03/10/2023 Transportation Needs Answer Date Record ed Lack of Transportation (Medical) 1 03/10/2023 Housing Stability Answer Date Recorded Unable to Pay for Housing in the Last Year 1 03/10/2023 Sex and Gender Information Value Date Recorded Sex Assigned at Not on file Gender Identity Not on file Sexual Orientation Not on file Obstetrics History Para Term AB IAB SAB Ectopic Multiple Livin g Live Births 1 Date Outcome GA Total Labor Labor/2nd/3rd Weight Sex Type Anes PTL Sofiya A1 A5 Name Clin 024 Term 37w 0d M C-Sec tion Livin g Dr Ervin Complications:Arrest of desc ent Delivery Location:[facility] Last Filed Vital Signs Vital Sign Reading Time Taken Comments Blood Pressure 106/70 03/10/2023 3:59 PM CDT Pulse 70 03/10/2023 3:59 PM CDT Temperature - - Respiratory Rate - - Oxygen Saturation 100% 03/10/2023 3:59 PM CDT Inhaled Oxygen Concentration - - Weight 53.3 kg (117 lb 6.4 oz) 03/10/2023 3:59 P M CDT Height 154.4 cm (5' 0.79) 02/04/2023 3:58 PM CD T Body Mass Index 22.34 02/04/2023 3:58 PM CDT Plan of Treatment Health Maintenance Due Date Last Done Comments BMI (ht and wt on same day) for age 18+ 02/05/2024 02/04/2023, 12/27/2020, 08/27/2020, Additional history exists Depression screening for age 12+ 03/10/2024 03/10/2023, 08/27/2020, 08/10/2018, Additional history exists COVID-19 vaccine series ( season) 2024 Influenza for age 9-49 03/26/2024 0, 05/10/2019, 05/19/2018, Additional history exists Pap test for age 21-65 09/14/2026 4, 09/14/2023, 08/27/2020, Additional history exists Tetanus booster 08/18/2027 08/18/2017, 10/04/2007 Tdap Completed 08/18/2017, 10/04/2007 HIV for age 15-65 Completed 12/29/2022, 07/31/2019 Hepatitis C screening for age 18-79 Completed 12/29/2022 Pneumococcal series for age 6-64 Aged Out No longer eligible based on patient's age to complete this topic Procedures Procedure Name Priority Date/Time Associated Diagnosis Comments HPV HIGH RISK Routine 09/14/2023 12:00 PM CAN CAPPER LC HIV-1/O/2, 4TH GENERATION Routine 12/29/2022 3:22 PM CDT Encounter for supervision of normal first in first trimester LC HCV ANTIBODY RFX TO QUANT PCR Routine 12/29/2022 3:22 PM CDT Encounter for supervision of normal first in first trimester from Last 3 Months or Most Recently Relevant to Health Maintenance Results * HPV HIGH RISK (09/14/2023 12:00 PM CAN CAPPER) TYPE 16 Negative Negative 09/17/2023 1:42 PM CAN CAPPER [facility] TYPE 18 Negative Negative 09/17/2023 1:42 PM CAN CAPPER [facility] OTHER HIGH RISK TYPES Negative Negative 09/17/2023 1:42 PM CAN CAPPER [facility] Other (Cervical) 09/14/2023 12:00 PM CAN CAPPER 09/16/2023 9:56 AM CAN CAPPER Narrative [facility] - 09/17/2023 1:42 PM CAN CAPPER HPV types 16, 18, 31, 33, 35, 39, 45, 51, 52, 56, 58, 59, 66 and 68 DNA were undetectable or below the pre-set threshold. Methodology: Chase Godfrey 4800 HPV Test Bev TRAN MICROBIOLOGY [facility] [address] [place] [address], * LC HCV ANTIBODY RFX TO QUANT PCR (12/29/2022 3:22 PM CDT) HCV Ab Non Reactive Non Reactive 01/01/2023 12:08 PM CDT [facility] ([facility]) Blood BLOOD SPECIMEN / Unknown Venipuncture / Unknown 12/29/2022 3:22 PM CDT 12/29/2022 3:29 PM CDT [facility] ([facility]) - 01/01/2023 12:08 PM CDT Performed at: ??01 - [address] ??[id number] Light Technician: Chuy Higginbotham MD, Phone: ??[phone] Lizbeth Gonzalez DO LABORATORY Performing Organization Address City/[facility]/ZIP Co de Phone Number [facility] ([facility]) [address] [place] [address] * LC HIV-1/O/2, 4TH GENERATION (12/29/2022 3:22 PM CDT) HIV Scr 4th Gen Non Reactive Non Reactive 01/01/2023 12:09 PM CDT [facility] ([facility]) Comment: HIV Negative HIV-1/HIV-2 antibodies and HIV-1 p24 antigen were NOT detected. There is no laboratory evidence of HIV infection. Blood BLOOD SPECIMEN / Unknown Venipuncture / Unknown 12/29/2022 3:22 PM CDT 12/29/2022 3:29 PM CDT [facility] ([facility]) - 01/01/2023 12:09 PM CDT Performed at: ??01 - [address] ??[id number] Light Technician: Chuy Higginbotham MD, Phone: ??[phone] Lizbeth Gonzalez DO LABORATORY [facility] ([facility]) [address] [place] [address] from Last 3 Months or Most Recently Relevant to Health Maintenance Care Teams Wheat Washer Relationship Specialty Start Date End Date Lizbeth Gonzalez [place] [address] PCP - General Family Practice 12/22/22
== END 2024-05-05 10:26 | disposition home or self-care (01) ==
LOC: NFLDREF 13:28
PROVIDERS: Visit Provider Advanced Practice Midwife
DX: Z13.220 Encounter for screening for lipoid disorders (principal); Z13.1 Encounter for screening for diabetes mellitus
CPT/HCPCS: 80061; 82947

== ENCOUNTER 2025-03-16 07:09 | Outpatient (CLI) | payer BC, SELFPAY ==
--- NOTE | 2025-03-16 07:15 | CRLHL7_ITS ---
For Patients: As a result of the Cures Act, medical imaging exams and procedure reports are released immediately into your electronic medical record. You may view this report before your referring provider. If you have questions, please contact your health care provider. LMP: 01/12/2025. TABBY by LMP: 10/19/2025. GA: 9w, 0d. Single. INDICATION: Dating and viability. CRL: 2.4 cm, 9 w 0 d. TABBY 10/19/2025. FHR: 171 bpm. GESTATIONAL SAC: 4.1 cm, appears within normal limits. YOLK SAC: 4.6 mm, appears within normal limits. RIGHT OVARY: 2.5 x 1.0 2 2.3 cm, within normal limits. LEFT OVARY: 2.9 x 2.0 x 2.9 cm, within normal limits. IMPRESSION: Single living intrauterine measuring 9 weeks 0 days and sonographic due date 10/19/2025. Juan Pablo Alcala M.D. Diagnostic Radiologist [email or web address] VIC/oj / bM/Dictated by: Juan Pablo Alcala MD @ 03/16/2025 10:14:00 AM (Electronically Signed)
== END 2025-03-16 07:10 | disposition home or self-care (01) ==
LOC: US 07:10
PROVIDERS: Visit Provider Midwife
DX: Z34.91 Encounter for supervision of normal pregnancy, unspecified, first trimester (principal); Z3A.09 9 weeks gestation of pregnancy
CPT/HCPCS: 76801

== ENCOUNTER 2025-03-16 08:30 | Outpatient (CLI) | payer BC, SELFPAY | END 2025-03-16 08:31 | disposition home or self-care (01) | PROVIDERS: Visit Provider Midwife | DX: Z34.81 Encounter for supervision of other normal pregnancy, first trimester (principal); Z67.40 Type O blood, Rh positive | CPT/HCPCS: 80061; 83020; 83021; 85660; 86592; 86703; 86704; 86706; 86762; 86787; 86803; 86850; 86900; 86901; 87086; 87340 ==

== ENCOUNTER 2025-04-06 09:26 | Outpatient (CLI) | payer BC, SELFPAY | END 2025-04-06 09:27 | disposition home or self-care (01) | LOC: NFLDREF 04-07 17:23 | PROVIDERS: Visit Provider Advanced Practice Midwife | DX: O09.91 Supervision of high risk pregnancy, unspecified, first trimester (principal); Z11.3 Encounter for screening for infections with a predominantly sexual mode of transmission; Z3A.12 12 weeks gestation of pregnancy | CPT/HCPCS: 87491; 87591 ==

== ENCOUNTER 2025-06-01 12:00 | Outpatient (CLI) | payer BC, SELFPAY ==
--- NOTE | 2025-06-01 12:15 | CRLHL7_ITS ---
For Patients: As a result of the Century Cures Act, medical imaging exams and procedure reports are released immediately into your electronic medical record. You may view this report before your referring provider. If you have questions, please contact your health care provider. OB ULTRASOUND GREATER THAN 14 WEEKS CLINICAL HISTORY: scan. TECHNIQUE: Real time camp scale imaging of the fetus was performed. Transabdominal imaging performed. COMPARISON: 03/16/2025. FINDINGS: TABBY by LMP: 10/19/2025. GA: 20 weeks 0 days. Position: Vertex. Cervix: Visualized. Technique: TA. Length of closed cervix: 3.3 cm. Placenta/Cord: Posterior. Technique: TA. Placenta tip to internal OS: 5.8 cm. Umbilical Cord: 3 vessel cord. Single UA. Placental Insertion: Central. Amniotic Fluid: 3.3 cm SDP. OBSERVED STRUCTURES Calvarium/Spine Cerebellum: 1.8 cm, 18 weeks 3 days Cisterna Magna: 4.4 mm Nuchal Fold: 5.2 mm Lateral Ventricle: 5.8 mm CSP Choroid Plexus Midline Falx Spine Abdomen: Stomach Abd Cord Insert Urinary Bladder Kidneys Diaphragm Face: Nose/Lips Orbital View Profile Limbs: Upper Extremities Lower Extremities Hands Feet Vascular: 4 Chamber Heart LVOT RVOT 3VV 3VTV BIOMETRY BPD: 4.4 cm, 19 weeks 1 day. 17.4% HC: 16.9 cm, 19 weeks 3 days. 20.3% AC: 13.7 cm, 19 weeks 1 day. 18.6% FL: 3.1 cm, 19 weeks 5 days. 30.8% FL/AC: 22.8% HC/AC Ratio: 1.2 Heart Rate: 133 bpm. Age by this US: 19 weeks 3 days. TABBY by this US: 10/23/2025. EFW: 290.3 grams. 0 lb 10 oz. Percentile by TABBY: 16.7% IMPRESSION: 1. Concordance of clinical and sonographic dating. 2. Normal anatomic survey. Juan Pablo Alcala M.D. Diagnostic Radiologist [email or web address] Transcribed: 4:01 pm DW/Dictated by: Juan Pablo Alcala MD @ 06/01/2025 2:25:00 PM (Electronically Signed)
== END 2025-06-01 12:01 | disposition home or self-care (01) ==
LOC: US 12:00
PROVIDERS: Visit Provider Advanced Practice Midwife
DX: Z34.92 Encounter for supervision of normal pregnancy, unspecified, second trimester (principal); Z3A.20 20 weeks gestation of pregnancy
CPT/HCPCS: 76805